=== PATIENT | female | born 2000 | race Two or more races ===

== ENCOUNTER 2024-01-02 07:09 | Emergency (ER) | payer OTHER ==
[~2024-01-02] VITALS: Ht 160 cm; Wt 56.7 kg
[2024-01-02] MEDS ORDERED: RINGERS SOLUTION,LACTATED 1,000 ML IV STA (07:38)
[2024-01-02 08:41] LABS: HEMATOCRIT 33.2 % (36.0-45.00); HEMOGLOBIN 11.5 g/dL (12.0-15.00); MEAN CELL VOLUME 90.8 fL (80.00-100.00); MEAN CORPUSCULAR HEMOGLOBIN 31.5 pg (27.00-32.0); MEAN CORPUSCULAR HGB CONC 34.7 g/dl (32.0-36.0); PLATELET COUNT 291 K/uL (150-450); RED BLOOD COUNT 3.66 M/uL (4.00-6.00); RED CELL DISTRIBUTION WIDTH 13.1 % (11.5-14.5)
[2024-01-02 08:55] LABS: PH,URINE 7.5 (5.0-8.0); URINE APPEARANCE Clear; URINE BILIRRUBIN Negative (NEGATIVE); URINE BLOOD Negative; URINE COLOR Yellow; URINE GLUCOSE Negative (NEGATIVE); URINE LEUKOCYTE Trace; URINE NITRATE Negative; URINE PROTEIN Negative (NEGATIVE); URINE UROBILINOGEN 0.2 E.U./dl
[2024-01-02 08:59] LABS: URINE EPITHELIAL CELLS 13.5 uL (0.0-38.8); URINE RBC 3.6 uL (0.0-20.8)
[2024-01-02 09:01] LABS: URINE WBC 1.6 uL (0.0-23.2)
[2024-01-02 09:10] LABS: CALCIUM 10.1 mg/dL (8.5-10.1); CREATININE SERUM 0.54 mg/dL (0.55-1.02); GFR 142.51; POTASSIUM 3.61 mEq/L (3.5-5.1)
== END 2024-01-02 10:17 | disposition home or self-care (01) ==
LOC: ER 07:10
DX: Z34.90 Encounter for supervision of normal pregnancy, unspecified, unspecified trimester (principal); R10.2 Pelvic and perineal pain

== ENCOUNTER 2024-01-14 15:57 | Outpatient (CLI) | payer OTHER | END 2024-01-14 15:58 | disposition home or self-care (01) | LOC: PRENATAL 15:57 | PROVIDERS: ATTEND Obstetrics & Gynecology Maternal & Fetal Medicine | DX: O35.9XX0 Maternal care for (suspected) fetal abnormality and damage, unspecified, not applicable or unspecified (principal); O35.3XX0 Maternal care for (suspected) damage to fetus from viral disease in mother, not applicable or unspecified; O44.02 Complete placenta previa NOS or without hemorrhage, second trimester; Z3A.19 19 weeks gestation of pregnancy ==

== ENCOUNTER → 2024-03-17 15:17 | Outpatient (CLI) | payer OTHER | END | disposition home or self-care (01) | LOC: PRENATAL 15:17 | PROVIDERS: ATTEND Obstetrics & Gynecology Maternal & Fetal Medicine | DX: O26.849 Uterine size-date discrepancy, unspecified trimester (principal); O44.00 Complete placenta previa NOS or without hemorrhage, unspecified trimester; Z3A.28 28 weeks gestation of pregnancy ==

== ENCOUNTER → 2024-04-26 15:21 | Outpatient (CLI) | payer OTHER | END | disposition home or self-care (01) | LOC: PRENATAL 15:21 | PROVIDERS: ATTEND Obstetrics & Gynecology Maternal & Fetal Medicine | DX: O26.849 Uterine size-date discrepancy, unspecified trimester (principal); O36.8199 Decreased fetal movements, unspecified trimester, other fetus; O99.019 Anemia complicating pregnancy, unspecified trimester; Z3A.34 34 weeks gestation of pregnancy ==

== ENCOUNTER 2024-05-22 12:55 | Outpatient (CLI) | payer OTHER ==
[~2024-05-22] VITALS: Ht 157.5 cm; Wt 70.8 kg
[2024-05-22 12:45] VITALS: BP 117/69
[2024-05-22] MEDS ORDERED: RINGERS SOLUTION,LACTATED 1,000 ML IV SCH (13:15)
[2024-05-22 13:43] LABS: PH,URINE 6.5 (5.0-8.0); URINE APPEARANCE Clear; URINE BILIRRUBIN Negative (NEGATIVE); URINE BLOOD Negative; URINE COLOR Yellow; URINE GLUCOSE Negative (NEGATIVE); URINE KETONE Negative (NEGATIVE); URINE LEUKOCYTE Moderate; URINE NITRATE Negative; URINE PROTEIN Negative (NEGATIVE); URINE UROBILINOGEN 0.2 E.U./dl
[2024-05-22 13:47] LABS: URINE BACTERIA 381.7 uL (0.0-1933); URINE EPITHELIAL CELLS 9.4 uL (0.0-38.8); URINE WBC 24.1 uL (0.0-23.2)
[2024-05-22 14:00] LABS: HEMATOCRIT 26.9 % (36.0-45.00); MEAN CELL VOLUME 81.9 fL (80.00-100.00); MEAN CORPUSCULAR HGB CONC 32.3 g/dl (32.0-36.0); PLATELET COUNT 217 K/uL (150-450); RED BLOOD COUNT 3.28 M/uL (4.00-6.00); RED CELL DISTRIBUTION WIDTH 15.2 % (11.5-14.5)
[2024-05-22] MEDS ORDERED: PRENATAL TABLE1 EAC1 PO (14:04)
[2024-05-22 14:14] LABS: HEMOGLOBIN 8.7 g/dL (12.0-15.00); MEAN CORPUSCULAR HEMOGLOBIN 26.5 pg (27.00-32.0)
[2024-05-22 15:36] VITALS: BP 109/69
[2024-05-22] MEDS ORDERED: SOD FERRIC GLUC COMPLX/SUCROSE 62.5 MG/5 ML AMPUL IV NR (17:00)
[2024-05-22 19:53] VITALS: BP 121/63
[2024-05-22 23:58] VITALS: BP 107/63
[2024-05-23 03:33] VITALS: BP 100/60
[2024-05-23 08:08] VITALS: BP 110/67
[2024-05-23 11:37] VITALS: BP 112/75
[2024-05-23 15:40] VITALS: BP 114/71
[2024-05-23 18:45] VITALS: BP 114/71
== END 2024-05-23 17:48 | disposition home or self-care (01) ==
LOC: OBS/DEL 12:55
PROVIDERS: Obstetrics & Gynecology; ATTEND Obstetrics & Gynecology
DX: O26.893 Other specified pregnancy related conditions, third trimester (principal); Z3A.37 37 weeks gestation of pregnancy

== ENCOUNTER 2024-06-07 08:08 | Inpatient (IN) | payer OTHER ==
[~2024-06-07] VITALS: Ht 157.5 cm; Wt 70.8 kg
[2024-06-07] VITALS (16 sets, daily range): BP systolic 104–136; BP diastolic 48–79
[~2024-06-07 08:08] MED LIST: IRON 100 PLUS1 EACH PO; PRENATAL TABLE1 EAC1 PO
[2024-06-07] MEDS ORDERED: RINGERS SOLUTION,LACTATED 1,000 ML IV SCH (08:30)
[2024-06-07] MEDS ORDERED: MISOPROSTOL 25 MCG/4 ML GEL.W.APPL VAG STA (08:41)
[2024-06-07 10:12] LABS: URINE APPEARANCE Cloudy; URINE BILIRRUBIN Negative (NEGATIVE); URINE COLOR Yellow; URINE GLUCOSE Negative (NEGATIVE); URINE KETONE Negative (NEGATIVE); URINE LEUKOCYTE Large; URINE NITRATE Negative; URINE PROTEIN Trace (NEGATIVE); URINE UROBILINOGEN 0.2 E.U./dl
[2024-06-07 10:15] LABS: URINE BACTERIA 8749.4 uL (0.0-1933); URINE CAST 2.13 uL (0.0-1.40); URINE EPITHELIAL CELLS 105.4 uL (0.0-38.8); URINE RBC 19.6 uL (0.0-20.8); URINE WBC 1664.9 uL (0.0-23.2)
[2024-06-07 10:42] LABS: URINE BLOOD Trace
[2024-06-07 10:44] LABS: URINE YEAST MODERATE /hpf
[2024-06-07 10:47] LABS: HEMATOCRIT 30.1 % (36.0-45.00); HEMOGLOBIN 9.7 g/dL (12.0-15.00); MEAN CELL VOLUME 85.1 fL (80.00-100.00); MEAN CORPUSCULAR HEMOGLOBIN 27.4 pg (27.00-32.0); MEAN CORPUSCULAR HGB CONC 32.2 g/dl (32.0-36.0); PLATELET COUNT 218 K/uL (150-450); RED BLOOD COUNT 3.54 M/uL (4.00-6.00); RED CELL DISTRIBUTION WIDTH 17.6 % (11.5-14.5)
[2024-06-07 11:01] LABS: INR < 0.93; PARTIAL THROMBOPLASTIN TIME 24.6 SECONDS (22.0-34.0); PROTHROMBIN TIME 9.9 SECONDS (9.0-11.5)
[2024-06-07 11:53] LABS: ALBUMIN 2.8 gm/dL (3.4-5.0); BILIRUBIN TOTAL 0.22 mg/dL (0.3-1.2); CALCIUM 9.8 mg/dL (8.5-10.1); CREATININE SERUM 0.45 mg/dL (0.55-1.02); GFR 175.88; GLOBULINA 3.9 G/DL (2.4-3.5); POTASSIUM 4.78 mEq/L (3.5-5.1); TOTAL PROTEIN 6.7 gm/dL (6.4-8.2)
[2024-06-07] MEDS ORDERED: OXYTOCIN 500 ML IV SCH (13:45)
[2024-06-07] MEDS ORDERED: CARBOPROST TROMETHAMINE 250 MCG/ML AMPUL IM ONE (17:00)
[2024-06-07] MEDS ORDERED: OXYTOCIN 10 UNITS/ML VIAL IM STA (17:09)
[2024-06-07] MEDS ORDERED: CHLORHEXIDINE GLUCONATE 120 ML BOTTLE TOP ONE (17:15)
[2024-06-07] MEDS ORDERED: IBUprofen 400 MG TABLET PO PRN (17:15)
[2024-06-07] MEDS ORDERED: OXYTOCIN 1,000 ML IV SCH (17:15)
[2024-06-07 21:40] LABS: HEMATOCRIT 24.8 % (36.0-45.00); HEMOGLOBIN 8.1 g/dL (12.0-15.00); MEAN CELL VOLUME 84.6 fL (80.00-100.00); MEAN CORPUSCULAR HEMOGLOBIN 27.6 pg (27.00-32.0); MEAN CORPUSCULAR HGB CONC 32.5 g/dl (32.0-36.0); PLATELET COUNT 227 K/uL (150-450); RED BLOOD COUNT 2.93 M/uL (4.00-6.00); RED CELL DISTRIBUTION WIDTH 18.4 % (11.5-14.5)
[2024-06-08 00:30] VITALS: BP 103/68
[2024-06-08 16:31] VITALS: BP 109/68
[2024-06-09 03:05] VITALS: BP 101/67
[2024-06-09 08:09] VITALS: BP 109/56
== END 2024-06-09 14:37 | disposition home or self-care (01) | DRG 807 ==
LOC: LDR 08:08 → OB/GYN 18:57
PROVIDERS: Obstetrics & Gynecology; ADMIT Obstetrics & Gynecology; ATTEND Obstetrics & Gynecology
PROC: 10E0XZZ Delivery of Products of Conception, External Approach (ICD-10-PCS; principal; 2024-06-07)
PROC: 0KQM0ZZ Repair Perineum Muscle, Open Approach (ICD-10-PCS; 2024-06-07)
PROC: 3E033VJ Introduction of Other Hormone into Peripheral Vein, Percutaneous Approach (ICD-10-PCS; 2024-06-07)
PROC: 3E0P7VZ Introduction of Hormone into Female Reproductive, Via Natural or Artificial Opening (ICD-10-PCS; 2024-06-07)
DX: O70.1 Second degree perineal laceration during delivery (principal); Z37.0 Single live birth; Z3A.40 40 weeks gestation of pregnancy